=== PATIENT | male | born 1990 | race Caucasian/White ===

== ENCOUNTER 2018-07-03 01:20 | Emergency (ER) | payer MEDICAID ==
[~2018-07-03] VITALS: Ht 177.8 cm; Wt 77.1 kg
[2018-07-03] MEDS ORDERED: NKM (01:38)
[2018-07-03 01:46] VITALS: BP 122/82
[2018-07-03] MEDS ORDERED: Bactrim-DS 1 tab ORAL ONE (02:00)
[2018-07-03] MEDS ORDERED: BACTRIM DS TAB1 EAC1 ORAL (02:13)
[2018-07-03] MEDS ORDERED: MUPIROCIN22 GM TOPIC (02:13)
--- NOTE | 2018-07-03 02:14 | Emergency Room Report ---
History of Present Illness General Chief Complaint: Skin Rash/Abscess Source: Patient Present Illness HPI This is a 28-year-old male with no past medical history. He presents with an abscess to his right naris. Onset for last 48 hours as a small pimple on the inside. He try to pop it. Now is swollen and there is redness on the outside. Pain is 7 out of 10. Worse with palpation or blunt his nose. No drainage. No fever chills. Denies any other complaint. Allergies: Coded Allergies: No Known Allergies (Unverified , 07/03/18) Patient History Past Medical History: none, see triage record, old chart reviewed Past Surgical History: none Pertinent Family History: none Social History: Denies: smoking Immunizations: other Reviewed Nursing Documentation: PMH: Agreed; PSxH: Agreed Nursing Documentation-PMH Past Medical History: No Stated History Review of Systems Eye: Denies: eye pain, blurred vision ENT: Denies: ear pain, nose congestion, throat swelling Respiratory: Denies: cough, shortness of breath Cardiovascular: Denies: chest pain, palpitations Gastrointestinal: Denies: abdominal pain, diarrhea, nausea, vomiting Musculoskeletal: Denies: back pain, joint pain Skin: Reports: lesions; Denies: rash Neurological: Denies: headache, numbness Endocrine: Denies: increased thirst, increased urine Hematologic/Lymphatic: Denies: easy bruising All Other Systems: negative except mentioned in HPI Physical Exam Vital Signs Date Time Temp Pulse Resp B/P (MAP) Pulse Ox O2 Delivery O2 Flow Rate FiO2 07/03/18 01:32 98.8 92 16 122/82 96 Room Air Vitals normal Sp02 EP Interpretation: reviewed, normal General Appearance: well appearing, no apparent distress, alert Head: normocephalic, atraumatic Eyes: bilateral eye PERRL, bilateral eye EOMI ENT: hearing grossly normal, normal pharynx, other - Nose: There is a small abscess just inside the right nares. There is edema and redness on the outside. There is 1 mm eschar in the center. There is no drainage. No crepitance. Neck: full range of motion, supple, no meningismus Respiratory: chest non-tender, lungs clear, normal breath sounds Cardiovascular #1: regular rate, rhythm, no murmur Gastrointestinal: normal bowel sounds, non tender, no mass, no organomegaly, no bruit, non-distended Musculoskeletal: back normal, gait/station normal, normal range of motion Psychiatric: mood/affect normal Skin: warm/dry Procedures Incision and Drainage Incision and Drainage : Consent: Verbal Site: Nose Blade Size: 11 I & D Procedure: betadine prep Wound Location: other - Nose Anesthesia: 1% Lidocaine Volume Anesthetic (ccs): 1 Patient Tolerated: Well Complications: None Progress Local anesthetic 1% lidocaine without epinephrine. I made a small incision with 11 blade scalpel. Using a Q-tip I was able to express scant amount of pus and a white head. Patient tolerated procedure without a problem. Medical Decision Making Diagnostic Impression: Primary Impression: Nasal abscess ER Course Patient presents with abscess to his nose. Most likely MRSA. No evidence of necrotizing fasciitis. We'll discharge home. Last Vital Signs Date Time Temp Pulse Resp B/P (MAP) Pulse Ox O2 Delivery O2 Flow Rate FiO2 07/03/18 01:46 98.8 91 16 122/82 96 Room Air Status: improved Disposition: HOME, SELF-CARE Condition: Stable Scripts Trimethoprim/Sulfamethoxazole 160/800* (BACTRIM DS TABLET*) 1 Each Tablet 1 TAB ORAL Q12H, #14 TAB 0 Refills Prov: Hunter Sorto MD 07/03/18 Mupirocin* (MUPIROCIN*) 22 Gm Oint...g. 1 APPLIC TOPIC BID, #22 GM Prov: Hunter Sorto MD 07/03/18 Patient Instructions: Abscess Additional Instructions: Keep area clean. Follow-up with your DrTe in 2-3 days for recheck. Return if worse. Hunter Sorto MD Jul 03, 2018 02:14
[2018-07-03] MEDS ORDERED: Norco 5mg/325mg tab ORAL ONE (02:15)
[2018-07-03 02:27] VITALS: BP 122/82
== END 2018-07-03 02:28 | disposition home or self-care (01) ==
LOC: EMR 02:14
DX: J34.0 Abscess, furuncle and carbuncle of nose (principal); F17.200 Nicotine dependence, unspecified, uncomplicated
CPT/HCPCS: 10060; 99283; Z7502; 99282